=== PATIENT | female | born 1990 | race Caucasian/White ===

== ENCOUNTER 2025-03-05 13:15 | Emergency (ER) | payer MEDICAID, SELFPAY ==
[2025-03-05 13:21] VITALS: BMI 32.9
[2025-03-05 13:31] VITALS: BP 125/77; PULSE 120; RESP 20; TEMP 36.9; O2SAT 96
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
== END 2025-03-05 14:55 | disposition home or self-care (01) ==
PROVIDERS: Emergency Provider Emergency Medicine
DX: S80.01XA Contusion of right knee, initial encounter (principal); S70.02XA Contusion of left hip, initial encounter; V89.2XXA Person injured in unspecified motor-vehicle accident, traffic, initial encounter; Y92.410 Unspecified street and highway as the place of occurrence of the external cause
CPT/HCPCS: 73552; 73562; 99283